=== PATIENT | male | born 1955 | race Caucasian/White ===

== ENCOUNTER 2017-02-24 04:52 | Day surgery (SDC) | payer OTHER ==
[2017-02-22 07:42] VITALS: BMI 26.4
--- NOTE | 2017-02-24 07:59 | HP ---
History & Physical Update - History History: No Change - Physical Physical: No Change - Assessment Assessment: No Change - Plan Plan: No Change
--- NOTE | 2017-02-24 08:01 | OP ---
Operative Note - Note: Operative Date: 02/24/17 Pre-Operative Diagnosis: BPH w LUTS Operation: bipolar TURP Findings: BPH Post-Operative Diagnosis: Same as Pre-op Surgeon: Shane Yoon Anesthesiologist/BLEACH LIQUOR MAKER: Jasmin Uriostegui Anesthesia: General Specimens Removed: prostate tissue Estimated Blood Loss (mls): 10 Drains & Tubes with Location: [address] 30 [address] lucero Operative Report Dictated: Yes
[2017-02-24] MEDS ORDERED: OXYCODONE/APAP 5/325MG COMBO TABLET PO PRN (08:02)
[2017-02-24] MEDS ORDERED: MIDAZOLAM HCL 2 MG/2 ML SINGLE DOSE VIAL ONE (08:03)
[2017-02-24] MEDS ORDERED: PROPOFOL 20 ML ONE ×3 (08:10→08:12)
[2017-02-24] MEDS ORDERED: DEXAMETHASONE SOD PHOSPHATE 4 MG/1 ML VIAL ONE (08:12)
[2017-02-24] MEDS ORDERED: ceFAZolin SODIUM 1 GM VIAL ONE (08:12)
[2017-02-24] MEDS ORDERED: LIDOCAINE HCL/PF 2% SDV 5ML VIAL ONE (08:12)
[2017-02-24] MEDS ORDERED: oxyCODONE HCL 5 MG TABLET PO PRN ×2 (09:14→13:54)
[2017-02-24] MEDS ORDERED: ONDANSETRON 4 MG/2 ML VIAL IVPUSH PRN (09:14)
[2017-02-24] MEDS ORDERED: IBUPROFEN 800 MG/8 ML IJ IVPB PRN (09:14)
[2017-02-24] MEDS: LACTATED RINGERS SOLUTION 1,000 ML IV SCH ×2 (11:15→11:30)
[2017-02-24] MEDS: predniSONE 10 MG TABLET (UD) PO SCH ×2 (13:53→22:19)
[2017-02-24] MEDS ORDERED: ACETAMINOPHEN 325 MG TABLET (FP) PO PRN (13:54)
[2017-02-24] MEDS: metFORMIN HCL 500 MG TABLET (FP) PO SCH (16:46)
[2017-02-24] MEDS: CEFAZOLIN (PRE-DOCKED) 50 ML IVPB SCH ×2 (16:46→23:49)
[2017-02-24] MEDS ORDERED: ATORVASTATIN CA 10 MG TABLET (FP) PO SCH (22:00)
[2017-02-24] MEDS ORDERED: MOMETASONE FUROATE 110 MCG/IH INHALER IH SCH (22:00)
[2017-02-24] MEDS ORDERED: INSULIN (NOVOLOG) ASPART 100 UNITS/ML 10ML VIAL SQ SCH (22:00)
[2017-02-24] MEDS ORDERED: MONTELUKAST NA 10 MG TABLET PO SCH (22:00)
[2017-02-25] MEDS: metFORMIN HCL 500 MG TABLET (FP) PO SCH (06:11)
[2017-02-25 07:38] LABS: MCH 30.3 pg (25.7-33.7); MCHC 33.6 g/dl (32.0-35.9); MEAN CELL VOLUME 90.3 fl (80-96); MEAN PLT VOLUME 8.9 fl (7.5-11.1); PLATELET COUNT 225 K/MM3 (134-434); RDW 13.8 % (11.9-15.9); WHITE BLOOD COUNT 11.2 K/mm3 (4.0-10.0)
[2017-02-25 08:09] LABS: ANION GAP 8 (8-16); CALCIUM 8.4 mg/dL (8.5-10.1); CO2 27 mmol/L (21-32); CREATININE 0.6 mg/dL (0.7-1.3); GLUCOSE,RANDOM 186 mg/dL (74-106)
[2017-02-25 09:21] VITALS: BP 100/68; PULSE 79; TEMP 97.5
[2017-02-25] MEDS: predniSONE 10 MG TABLET (UD) PO SCH (09:23)
[2017-02-25] MEDS: CEFAZOLIN (PRE-DOCKED) 50 ML IVPB SCH (09:23)
--- NOTE | 2017-02-26 22:32 | OP ---
DATE OF OPERATION: 02/24/2017 PREOPERATIVE DIAGNOSIS: Benign prostatic hypertrophy with lower urinary tract symptoms. POSTOPERATIVE DIAGNOSIS: Benign prostatic hypertrophy with lower urinary tract symptoms. PROCEDURE: Bipolar transurethral resection of the prostate. SURGEON: Shane Camargo MD GLOBAL MOBILITY SPECIALIST: None. ANESTHESIA: General via laryngeal mask. ANESTHESIOLOGIST: Jasmin Uriostegui MD SPECIMENS: Prostate tissue. CULTURES: None. DRAINS: 22-[place] 3-way Everett catheter, 30 mL balloon. ESTIMATED BLOOD LOSS: 10 mL COMPLICATIONS: None. DESCRIPTION OF PROCEDURE: The patient was brought into the operating room, placed on the operating table in supine position. After the administration of general anesthesia via laryngeal mask, intravenous antibiotics were administered, and the patient was placed in the dorsal lithotomy position. The perineum and genitals were prepped and draped in usual sterile manner. The 26-[place] continuous-flow bipolar resectoscope was inserted into the anterior urethra under direct vision with the visualizing obturator. The anterior urethra was normal. The prostatic urethra measured approximately 5 cm in length, demonstrated severe bilobar occlusion. The bladder was entered and thoroughly inspected. There were no foreign bodies, tumors, stones, or inflammation. Both ureteral orifices were in their usual location with clear efflux bilaterally. Now, the working element was inserted, and the TURP was now performed in the standard fashion by first creating a groove in the left lateral lobe at the 2 o'clock position from the area of the bladder neck to the verumontanum down to the level of the capsular fibers. The left lateral lobe of the prostate was then sequentially resected from the 2 o'clock to the 6 o'clock position from the area of the bladder neck to the verumontanum down to the level of the capsular fibers. IN a similar manner, the right lateral lobe of the prostate was resected. The roof of the prostate was resected, and the floor of the prostate was resected. All resected prostatic tissue was removed from the bladder using Ellik evacuator. Hemostasis was assured with electrocautery. Both ureteral orifices were intact at the termination of the procedure. The resectoscope was removed, and a 22[place] Everett catheter was inserted; 30 mL placed in the balloon, placed on continuous bladder irrigation. Return blood tinged. He tolerated the procedure well, transferred to the recovery room in stable condition. SHANE CAMARGO M.D. [id number]
--- NOTE | 2017-02-27 12:42 | PATH ---
Surgical Pathology Report Patient Name: CYNTHIA CABRERA [facility]. Rec. #: [id number] /Age/Gender: 1955 (Age: 61) / M Account: [id number] Location: AMBULATORY SURG Taken: 02/24/2017 Received: 02/24/2017 Reported: 02/27/2017 Physicians: Shane Yoon M.D. Specimen(s) Received PROSTATE TISSUE Clinical History BPH Final Diagnosis PROSTATE, TUR: BENIGN PROSTATE TISSUE WITH GLANDULAR AND STROMAL HYPERPLASIA AND FOCI OF ACTIVE AND CHRONIC INFLAMMATION. Electronically Signed Lonnie Agrawal M.D. Gross Description Received in formalin labeled "prostate tissue" is a 17 g, 10.5 x 7.5 x 0.6 cm aggregate of multiple grace, irregular, firm to rubbery portions of tissue, consistent with prostate chips. Automobile Engine Assembler sections are submitted in 10 cassettes. DL/02/24/2017 saudi/02/24/2017
== END 2017-02-25 11:16 | disposition home or self-care (01) ==
LOC: JASU-SURG 04:52 → JASUSAT 04:52 → J6S 11:23 → JASUSAT 02-25 11:16
PROVIDERS: ATTEND Urology
PROC: 0VB08ZZ Excision of Prostate, Via Natural or Artificial Opening Endoscopic (ICD-10-PCS; principal; 2017-02-24 08:00)
DX: N40.0 Benign prostatic hyperplasia without lower urinary tract symptoms (principal); R39.9 Unspecified symptoms and signs involving the genitourinary system
CPT/HCPCS: 36415; 80048; 85027; 88305-TC; 94760